=== PATIENT | female | born 1985 | race Caucasian/White ===

== ENCOUNTER 2019-01-03 17:05 | Emergency (ER) | payer OTHER ==
[2019-01-03 17:09] VITALS: BP 139/84; PULSE 84; TEMP 98.1; BMI 41.0
[2019-01-03] MEDS ORDERED: SODIUM CHLORIDE 0.9% 500 ML INFUS.BAG IV ONE (18:10)
[2019-01-03 18:12] LABS: URINE APPEARANCE SL CLOUDY; URINE BILIRUBIN NEGATIVE (NEGATIVE); URINE COLOR YELLOW; URINE GLUCOSE (UA) NEGATIVE (NEGATIVE); URINE KETONE TRACE (NEGATIVE); URINE NITRITE NEGATIVE (NEGATIVE); URINE PROTEIN TRACE (NEGATIVE); URINE UROBILINOGEN 0.2 (0.2-1.0)
[2019-01-03] MEDS ORDERED: KETOROLAC TROMETHAMINE 30 MG/1 ML VIAL IVPUSH ONE (18:12)
[2019-01-03 18:13] LABS: URINE LEUK ESTERASE TRACE (NEGATIVE)
[2019-01-03 18:20] LABS: EPI CELLS 3+ /HPF; URINE RBC 0-2 /hpf (0-3)
--- NOTE | 2019-01-03 18:20 | PDOC ---
History of Present Illness - General Chief Complaint: Back Pain Stated Complaint: LEFT LOWER BACK PAIN Time Seen by Provider: 01/03/19 17:58 History Source: Patient Exam Limitations: No Limitations - History of Present Illness Initial Comments: 33 yo morbidly obese F w a pmh of PCOS and kidney stones presents to the ER with left flank pain which radiates to her LLQ which she rates as 7/10 in intensity. She reports that she has had kidney stones in the past and this feels exactly like her prior kidney stones except this one is not as bad as it has been in the past. Last time she had a fever, nausea, and vomting. This time it is much more mild. She states that last week she had a stomach virus and experienced a significant amount of nausea which caused her to be dehydrated and this dehydration might have led to her current symptoms and possible stone precipitation. Last time she had a stone it was treated with IV hdyration, analgesia, and tamsulosin and the stone passed within a week. She denies having any gynecological history. She denies having any abnormal vaginal discharge, denies dysuria, frequency, urgency, hesitancy, or hematuria. Denies recent fevers, chills, headache, vomiting, blurry vision, diarrhea, constipation, chest pain, SOB, difficulty breathing, vertigo, numbness, weakness, or tingling. PCP: Camryn PSH: None reported Social Hx: Drinks recreationally, denies smoking or other drug usage Allergies: NKA, NKDA MEDS: Phentermine Past History - Past Medical History Allergies/Adverse Reactions: Allergies Allergy/AdvReac Type Severity Reaction Status Date / Time No Known Allergies Allergy Verified 01/03/19 17:07 Home Medications: Ambulatory Orders metFORMIN HCL [Metformin HCl] 500 mg PO BID 09/30/15 Cephalexin [Keflex] 500 mg PO TID #30 capsule 01/03/19 COPD: No Kidney Stones: Yes Other medical history: PCOS - Suicide/Smoking/Psychosocial Hx Smoking History: Never smoked Have you smoked in the past 12 months: No Information on smoking cessation initiated: No Hx Alcohol Use: No Drug/Substance Use Hx: No Substance Use Type: None Review of Systems - Review of Systems Able to Perform ROS?: Yes Comments:: CONSTITUTIONAL: Absent: fever, no chills, no fatigue EYES: Absent: visual changes ENT: Absent: ear pain, no sore throat CARDIOVASCULAR: Absent: chest pain, no palpitations RESPIRATORY: Absent: cough, no SOB GI: Present: Abdominal pain, nausea Absent: no vomiting, no constipation, no diarrhea GENITOURINARY: Absent: dysuria, no frequency, no hematuria MUSKULOSKELETAL: Present: Flank pain Absent: no arthralgia, no myalgia SKIN: Absent: rash NEURO: Absent: headache *Physical Exam - Vital Signs Last Vital Signs Temp Pulse Resp BP Pulse Ox 98.1 F 84 18 139/84 100 01/03/19 17:05 01/03/19 17:05 01/03/19 17:05 01/03/19 17:05 01/03/19 17:05 - Physical Exam Comments: GENERAL: Well-appearing, well-nourished. No apparent distress. HEENT: Normocephalic, atraumatic. PERRL, EOM intact. CARDIOVASCULAR: Normal S1, S2. Regular rate and rhythm. PULMONARY: No evidence of respiratory distress. Lungs clear to auscultation bilaterally. No wheezing, rales or rhonchi. ABDOMEN: Soft, Obese, non-distended, non-tender. EXTREMITIES: Normal ROM in all four extremities. No gross deformities. SKIN: Warm, dry. No rash NEUROLOGICAL: No focal neurological deficits. Moderate Sedation - Procedure Monitoring Vital Signs: Procedure Monitoring Vital Signs Temperature 98.1 F 01/03/19 17:05 Pulse Rate 84 01/03/19 17:05 Respiratory Rate 18 01/03/19 17:05 Blood Pressure 139/84 01/03/19 17:05 O2 Sat by Pulse Oximetry (%) 100 01/03/19 17:05 ED Treatment Course - LABORATORY CBC & Chemistry Diagram: 01/03/19 19:04 01/03/19 19:04 Medical Decision Making - Medical Decision Making 33 yo morbidly obese F w a pmh of PCOS and kidney stones presents to the ER with left flank pain which radiates to her LLQ which she rates as 7/10 in intensity. She reports that she has had kidney stones in the past and this feels exactly like her prior kidney stones except this one is not as bad as it has been in the past. Last time she had a fever, nausea, and vomting. This time it is much more mild. She states that last week she had a stomach virus and experienced a significant amount of nausea which caused her to be dehydrated and this dehydration might have led to her current symptoms and possible stone precipitation. Last time she had a stone it was treated with IV hdyration, analgesia, and tamsulosin and the stone passed within a week. She denies having any gynecological history. She denies having any abnormal vaginal discharge, denies dysuria, frequency, urgency, hesitancy, or hematuria. Denies recent fevers, chills, headache, vomiting, blurry vision, diarrhea, constipation, chest pain, SOB, difficulty breathing, vertigo, numbness, weakness, or tingling. VS: WNL DDx IBNLT: Kidney stones, UTI/PYLO, Ovarian torsion, ovarian cyst, diverticulitis, , ectopic Plan: Cbc, Cmp, HCG, Ua/UC, IV hydration, Renal US, TVUS, analgesia, re-assess. UA shows an abundance of WBC's - Will treat as UTI with keflex for the next 7 days and DC w PCP fu *DC/Admit/Observation/Transfer Diagnosis at time of Disposition: UTI (urinary tract infection) - Discharge Dispostion Disposition: HOME Condition at time of disposition: Stable Decision to Admit order: No - Prescriptions Prescriptions: Cephalexin [Keflex] 500 mg PO BID 7 Days #14 capsule - Referrals Referrals: Damion Cowan MD [Primary Care Provider] - - Patient Instructions Printed Discharge Instructions: Urinary Tract Infection Additional Instructions: You came into the ER with left flank pain. We looked at your urine and found that you have an upper urinary tract infection called pyelonephritis. We are sending an antibiotic to your pharmacy - keflex. Please make sure to go and pick it up and take it three times a day for the next 10 days. Make sure to call your primary care doctor and schedule an appointment in the next 3 to 5 days to make sure you are getting better and being taken care of. Come back to the ER if your pain worsens, you get a fever, become nauseous, or have any other new or worsening concerns. Thank you for coming to the [facility]. We hope you feel better soon! Print Language: MOHAWK - Post Discharge Activity
[2019-01-03 18:21] LABS: URINE BACTERIA 1+ /hpf (NEGATIVE)
[2019-01-03 18:25] LABS: HCG,QUALITATIVE URINE NEGATIVE
[2019-01-03] MEDS ORDERED: KETOROLAC TROMETHAMINE 30 MG/1 ML VIAL ONE (18:31)
--- NOTE | 2019-01-03 18:32 | PDOC ---
Attending Attestation - Resident Resident Name: Gregor Ma - ED Attending Attestation I have performed the following: I have examined & evaluated the patient, The case was reviewed & discussed with the resident, I agree w/resident's findings & plan - HPI HPI: 01/03/19 18:30 33 yo morbidly obese F w a pmh of PCOS and kidney stones presents to the ER with left flank pain which radiates to her LLQ no urinary sx, hematuria, f/c, vomiting or diarrhea. - Physicial Exam PE: 01/06/19 09:37 NAD, well appearing, PERRL, EOMI, MMM, nl conjunctiva, anicteric; neck supple. lungs clear, RRR, abdomen soft mild left flank TTP. no rebound or guarding. UP x4,. No peripheral edema. normal color for ethnicity, WWP. - Medical Decision Making 01/03/19 18:31 hpi as documented VS wnl ddx. pelvic pathology, ovarian torsion/ovarian cyst, renal stone/ ureterolithiasis. UTI, , pyelonephritis. labs and lytes normal UA _+infection, correlating with UTI and early pyelo preg test neg. US pelvic and renal to eval for underlying cause, r/o pelvic/ovarian pathology, r/o stone/hydro US neg for ovarian/pelvic or renal pathology. no s/s hydronephrosis likely early pyelo. no systemic findings. well appearing DC on keflex course for coverage, f/u cultures. Pt to be discharged in stable condition. Patient and family made aware of impression and plan, return precautions discussed (including but not limited to worsening pain or symptoms), fevers, or signs of infection, chest pain, respiratory distress, inability to tolerate oral intake, dehydration, syncope, or neurologic changes). Follow up with PMD as recommended, follow up information provided, take medications as instructed for duration of time. continue with supportive care, avoid triggers and precipitants. All questions answered to patient's satisfaction and expressed understanding and comfort with this. Patient does not suffer from an acute life-threatening medical condition at this time she is safe for outpatient follow-up. 01/06/19 09:37
[2019-01-03 19:25] LABS: BASO % 0.9 % (0-2.0); HEMATOCRIT 43.7 % (32.4-45.2); HEMOGLOBIN 13.9 GM/dl (10.7-15.3); LYMPH % 28.8 % (8-40); MCHC 31.9 g/dl (32.0-36.0); MEAN CELL VOLUME 84.7 fl (80-96); MEAN PLT VOLUME 8.5 fl (7.5-11.1); MONO % 5.5 % (3.8-10.2); NEUT % 63.8 % (42.8-82.8); PLATELET COUNT 359 K/MM3 (134-434); RBC 5.16 M/mm3 (3.60-5.2); RDW 13.4 % (11.6-15.6); WHITE BLOOD COUNT 8.9 K/mm3 (4.0-10.8)
[2019-01-03 19:38] LABS: ALBUMIN 3.9 g/dl (3.4-5.0); ALK PHOS 67 U/L (45-117); ANION GAP 11 MMOL/L (8-16); BILIRUBIN,TOTAL 0.5 mg/dl (0.2-1); BLOOD UREA NITROGEN 15 mg/dl (7-18); CALCIUM 9.4 mg/dl (8.5-10); CHLORIDE 103 mmol/L (98-107); CO2 28 mmol/L (21-32); CREATININE 0.8 mg/dl (0.55-1.3); GLUCOSE,RANDOM 108 mg/dl (74-106); SGOT/AST 22 U/L (15-37); SGPT/ALT 25 U/L (13-61); SODIUM 142 mmol/L (136-145); TOT PROT 7.3 g/dl (6.4-8.2)
[2019-01-03] MEDS ORDERED: CEPHALEXIN MONOHYDRATE 250 MG CAPSULE (FP) PO ONE (19:45)
[2019-01-03] MEDS ORDERED: CEPHALEXIN MONOHYDRATE 250 MG CAPSULE (FP) ONE (19:46)
[2019-01-03] MEDS ORDERED: CEPHALEXIN MONOHYDRATE 500 MG CAPSULE (UD) ONE (19:47)
== END 2019-01-03 20:05 | disposition home or self-care (01) ==
LOC: FER 17:05
PROC: 3E0333Z Introduction of Anti-inflammatory into Peripheral Vein, Percutaneous Approach (ICD-10-PCS; principal; 2019-01-03)
PROC: 3E0337Z Introduction of Electrolytic and Water Balance Substance into Peripheral Vein, Percutaneous Approach (ICD-10-PCS; 2019-01-03)
DX: R11.2 Nausea with vomiting, unspecified (principal); R10.32 Left lower quadrant pain; N39.0 Urinary tract infection, site not specified
CPT/HCPCS: 36415; 76775-TC; 76830-TC; 80053; 81003; 81015; 84703; 85025; 87086; 99285-25